=== PATIENT | male | born 1980 ===

== ENCOUNTER 2018-04-06 17:17 | Emergency (ER) | payer OTHER ==
[2018-04-06 18:08] VITALS: BP 123/76
--- NOTE | 2018-04-06 18:20 | UC ---
Skin Complaint HPI - HPI Summary HPI Summary: C/O rash around right side and back. Very sensitive. Rash present last 3-4 days. - History of Current Complaint Chief Complaint: UCSkin Time Seen by Provider: 04/06/18 18:08 Stated Complaint: RASH Hx Obtained From: Patient Onset/Duration: Sudden Onset, Lasting Days - 3-4, Still Present, Worse Since - today with blisters just today. Onset Severity: Mild Current Severity: Mild Pain Intensity: 3 Location: Discrete - right back/ side. Character: Redness, Raised Aggravating Factor(s): Nothing Alleviating Factor(s): Nothing Associated Signs & Symptoms: Positive: Rash, Tenderness. Negative: Nausea, Vomiting, Fever, Chills - Allergy/Home Medications Allergies/Adverse Reactions: Allergies Allergy/AdvReac Type Severity Reaction Status Date / Time No Known Allergies Allergy Verified 04/06/18 18:01 Home Medications: Home Medications Ibuprofen TAB* [Advil TAB*] 400 mg PO Q6H PRN 04/06/18 [History Confirmed ] Review of Systems Skin: Rash Is Patient Immunocompromised?: No All Other Systems Reviewed And Are Negative: Yes PMH/Surg Hx/FS Hx/Imm Hx Respiratory History: Asthma - Surgical History Surgical History: Yes Surgery Procedure, Year, and Place: T & A. ear tubes - Family History Known Family History: Positive: Hypertension Negative: Diabetes - Social History Occupation: Employed Full-time Lives: With Family Alcohol Use: Rare Substance Use Type: None Smoking Status (MU): Former Smoker Type: Cigarettes Amount Used/How Often: 1-2 cigarettes daily When Did the Patient Quit Smoking/Using Tobacco: 2-3 yrs ago Household Exposure Type: Cigarettes - Immunization History Most Recent Influenza Vaccination: no Physical Exam Triage Information Reviewed: Yes Appearance: Well-Appearing, No Pain Distress, Well-Nourished Vital Signs: Initial Vital Signs Temp 97.9 F 04/06/18 18:02 Pulse 73 04/06/18 18:02 Resp 14 04/06/18 18:02 BP 123/76 04/06/18 18:02 Pulse Ox 100 04/06/18 18:02 Vital Signs Reviewed: Yes Eyes: Positive: Conjunctiva Clear Neck exam: Normal Respiratory Exam: Normal Cardiovascular Exam: Normal Musculoskeletal Exam: Normal Neurological Exam: Normal Psychological Exam: Normal Skin: Positive: rashes - dermatomal vesicular rash right T6 dermatome. Course/Dx - Differential Diagnoses - Skin Complaint Differential Diagnoses: Contact Dermatitis, Drug Rash, Urticaria, Varicella Zoster - Diagnoses Provider Diagnoses: Shingles Discharge - Sign-Out/Discharge Documenting (check all that apply): Discharge/Admit/Transfer - Discharge Plan Condition: Stable Disposition: HOME Prescriptions: Gabapentin CAP(*) [Neurontin 300 CAP(*)] 300 mg PO TID PRN #60 cap PRN Reason: Pain - Back ValACYclovir (*) [Valtrex 1 GM(*)] 1 gm PO TID #21 tab Patient Education Materials: Shingles (ED), Valacyclovir (By mouth), Gabapentin (By mouth) Referrals: Frida Au MD [Primary Care Provider] - - Billing Disposition and Condition Condition: STABLE Disposition: HOME
[2018-04-06] MEDS ORDERED: Acyclovir* 200 MG CAP PO ONE (18:22)
== END 2018-04-06 18:45 | disposition home or self-care (01) ==
LOC: UCCORT 17:17
DX: B02.9 Zoster without complications (principal); Z87.891 Personal history of nicotine dependence
CPT/HCPCS: 99212; A9270-GY; G0463